=== PATIENT | male | born 1970 | race Caucasian/White ===

== ENCOUNTER 2016-12-27 09:06 | Emergency (ER) | payer MEDICAID ==
[~2016-12-27] VITALS: Ht 167.6 cm; Wt 83.9 kg
[2016-12-27 09:24] VITALS: BP 150/71
[2016-12-27] MEDS ORDERED: LEVAQUIN750 MG PO (09:28)
[2016-12-27] MEDS ORDERED: CLARITIN10 MG PO (09:28)
[2016-12-27] MEDS ORDERED: FLONASE NASAL50 MCG NS (09:28)
--- NOTE | 2016-12-27 09:31 | NUR ---
Patient ambulated to bed 05.
--- NOTE | 2016-12-27 09:31 | NUR ---
PATIENT PRESENTS TO ED WITH C/O FEVER, HEAD ACHE AND BODY ACHES X 1 WEEK, PT. WAS SEEN AT URGENT CARE WEDNESDAY AND TOLD HE HAD HEMATURIA; DENIES N/V/D; SKIN IS PINK/WARM/DRY; AAOX4 WITH EVEN AND STEADY GAIT; LUNGS CLEAR BL; HR EVEN AND REGULAR; PT DENIES ANY CP, SOB, OR COUGH AT THIS TIME; PATIENT STATES PAIN OF 10/10 AT THIS TIME; VSS; PATIENT POSITIONED FOR COMFORT; HOB ELEVATED; BEDRAILS UP X2; BED DOWN. ER MD MADE AWARE OF PT STATUS.
[2016-12-27] MEDS ORDERED: NACL 0.9% 1,000 ML IV SCH (10:01)
--- NOTE | 2016-12-27 10:02 | NUR ---
Dr. Kohler evaluating patient at bedside.
[2016-12-27] MEDS ORDERED: NACL 0.9% 1,000 ML IV ONE (10:10)
[2016-12-27] MEDS ORDERED: cefTRIAXone 2,000 MG in DEXTROSE 5% 100 ML IV ONE (10:15)
[2016-12-27] MEDS ORDERED: ACETAMINOPHEN EXTRA STRENGTH 500 MG TAB PO ONE (10:15)
[2016-12-27] MEDS ORDERED: cefTRIAXone 2,000 MG VIAL ONE (10:20)
--- NOTE | 2016-12-27 10:48 | NUR ---
Patient went to CT via [facility]
--- NOTE | 2016-12-27 11:25 | NUR ---
AAO PT BACK FROM CT PLACED BACK ON MONITOR, VSS
--- NOTE | 2016-12-27 14:25 | NUR ---
Shannen richardson in [facility] - 12/27/16 at 1426 by LEIGH AAO PT BACK FROM CT PLACED BACK ON MONITOR, VSS
--- NOTE | 2016-12-27 14:35 | NUR ---
AAO PT C/O PAIN 04/26, AT BEDSIDE, DR BEY NOTIFIED
[2016-12-27] MEDS ORDERED: MORPHINE SULFATE 4 MG/ML SYR IVP ONE (14:45)
[2016-12-27 15:33] VITALS: BP 138/76
== END 2016-12-27 15:33 | disposition home or self-care (01) ==
LOC: MED 09:06
DX: J18.9 Pneumonia, unspecified organism (principal); M79.1 Myalgia; Z88.6 Allergy status to analgesic agent
CPT/HCPCS: 36415; 74176; 80053; 81001; 82150; 83605; 83690; 85025; 87040; 87086; 96365; 96374; 99285; J0696; J2270; J7030

== ENCOUNTER 2016-12-30 13:15 | Emergency (ER) | payer MEDICAID ==
[~2016-12-30] VITALS: Ht 167.6 cm; Wt 83.9 kg
[~2016-12-30 13:15] MED LIST: CLARITIN10 MG PO; FLONASE NASAL50 MCG NS; LEVAQUIN750 MG PO
[2016-12-30 13:33] VITALS: BP 121/73
--- NOTE | 2016-12-30 13:35 | NUR ---
PATIENT TO ER BED 5.
--- NOTE | 2016-12-30 13:49 | NUR ---
Patient being evaluated by physician at bedside.
[2016-12-30] MEDS ORDERED: IPRATROPIUM 0.02% 0.5 MG/2.5 ML NEBU INH ONE ×2 (13:50→14:30)
[2016-12-30] MEDS ORDERED: ALBUTEROL 0.083% 2.5 MG/3 ML NEBU INH ONE ×2 (13:50→14:30)
--- NOTE | 2016-12-30 14:13 | NUR ---
46/M TO ED WITH C/O SOB X2 DAYS. PT STATES HE WAS DIAGNOSED WITH PNEUMONIA WEDNESDAY. STATES HE HAS NON PRODUCTIVE COUGH. WHEEZES HEARD UPON INSPIRATION. DENIES PAIN. AAOX4. VSS. NO SIGNS OF DISTRESS.
[2016-12-30] MEDS ORDERED: cefTRIAXone 1,000 MG in LIDOCAINE 1% ED 2.1 ML IM ONE (14:30)
--- NOTE | 2016-12-30 14:52 | NUR ---
BREATHING TX WAS STOPPED PER DUE TO PT HAVING MUSCLE SPAMS DURING TX ON THE RIGHT UPPER SHOULDER AREA, EMT IS DOING EKG ON PT RR20 HR 90 FIO2 94% Addendum: 12/30/16 at 1459 by Letty Bro RT ITS DR. GARZA NOT DR. WILCOX
[2016-12-30] MEDS ORDERED: ACETAMIN/CODEINE 120/12MG-5ML 5 ML UDC PO ONE (14:55)
--- NOTE | 2016-12-30 15:35 | NUR ---
Patient appears to be resting comfortably in bed. Vital Signs within normal limits. Respirations even and unlabored.
[2016-12-30] MEDS ORDERED: CALCIUM CARB 600 MG TAB PO STA (15:44)
[2016-12-30] MEDS ORDERED: POTASSIUM CHLORIDE 10 MEQ TABER PO ONE (15:45)
--- NOTE | 2016-12-30 16:28 | NUR ---
Patient appears to be resting comfortably in bed. Vital Signs within normal limits. Respirations even and unlabored.
[2016-12-30 16:54] VITALS: BP 102/68
--- NOTE | 2016-12-30 16:54 | NUR ---
Patient discharged with v/s stable. Written and verbal after care instructions given and explained. Patient alert, oriented and verbalized understanding of instructions. Ambulatory with steady gait. All questions addressed prior to discharge. ID band removed. Patient advised to follow up with PMD. Rx of PREDNISONE, ALBUTEROL, AZYTHROMYCIN, POTASSIUM given. Patient educated on indication of medication including possible reaction and side effects. Opportunity to ask questions provided and answered.
== END 2016-12-30 16:54 | disposition home or self-care (01) ==
LOC: MED 13:15
DX: J18.9 Pneumonia, unspecified organism (principal); J98.01 Acute bronchospasm; E87.8 Other disorders of electrolyte and fluid balance, not elsewhere classified; Z88.6 Allergy status to analgesic agent
CPT/HCPCS: 36415; 71010; 80048; 93005; 94640; 96372; 99285; J0696; J2001; J7613; J7644; Q0092